=== PATIENT | female | born 1955 | race American Indian/Alaskan Native ===

== ENCOUNTER 2017-01-11 16:36 | Outpatient (CLI) | payer OTHER ==
[2017-01-11 17:33] LABS: Blood Urea Nitrogen 10 mg/dL (7-17)
--- NOTE | 2017-01-11 19:50 | Cat Scan Report ---
FINAL REPORT EXAM: CT ANGIO CHEST HISTORY: AORTIC DISSECTION TECHNIQUE: High-resolution helical axial images were obtained of the chest during intravenous administration of iodinated contrast. Images are reconstructed in the sagittal and coronal planes. PRIORS: None. FINDINGS: There is no evidence of pulmonary embolism, the pulmonary arteries opacify normally. There is coronary artery atherosclerotic calcification and the heart is mildly enlarged. There is no evidence of aortic dissection or aneurysm. There is mild biapical subpleural cyst formation. Otherwise, the lungs are clear. The bones are unremarkable. IMPRESSION: 1. No evidence of aortic dissection or aortic aneurysm 2. No acute findings in the chest 3. Coronary artery atherosclerotic calcification
--- NOTE | 2017-01-11 19:59 | Cat Scan Report ---
FINAL REPORT EXAM: CT ANGIO ABDOMEN PELVIS HISTORY: AORTIC DISSECTION TECHNIQUE: Helical CT scan through the abdomen and pelvis during intravenous injection of iodinated contrast. Images are reconstructed in the sagittal and coronal planes. Oral contrast was not given. PRIORS: 01/11/2017 FINDINGS: The lung bases are clear. There is atherosclerotic calcification of the abdominal aorta without aneurysm or dissection. There is atherosclerotic calcification of the origin of the celiac artery and SMA without significant stenosis. There are single renal arteries bilaterally that appear patent. The liver, gallbladder, pancreas, spleen and adrenal glands appear normal. There is focal parenchymal scar in the upper pole the right kidney. The left kidney has 3.2 cm cyst. There is a 4 cm calcified fibroid in the left side of the uterus. The ovaries appear grossly normal. The stomach appears grossly within normal limits. There are no abnormally dilated loops of bowel or acute inflammatory changes. There is extensive sigmoid diverticulosis with associated hypertrophic thickening of the wall of the sigmoid without evidence of acute diverticulitis. There are numerous left colonic diverticula as well. Should there is no significant interval change. A normal-appearing appendix is identified. The abdominal aorta has a normal diameter. There is advanced degenerative facet disease at L4-5 and L5-S1. Otherwise, the bones and subcutaneous soft tissues are unremarkable for age. IMPRESSION: 1. No evidence of aortic dissection or aneurysm. Diffuse atherosclerotic disease. 2. 3.2 cm cyst in the left kidney. Focal right renal parenchymal scar 3. 4 cm calcified fibroid in the uterus 4. Left colonic and sigmoid diverticulosis without evidence of acute diverticulitis 5. Advanced degenerative facet disease at L4-5 and L5-S1
== END 2017-01-11 16:37 | disposition home or self-care (01) ==
LOC: CT 16:36
PROVIDERS: ATTEND Internal Medicine Cardiovascular Disease
DX: I51.7 Cardiomegaly (principal); I25.10 Atherosclerotic heart disease of native coronary artery without angina pectoris; I70.0 Atherosclerosis of aorta; J94.8 Other specified pleural conditions; N28.1 Cyst of kidney, acquired; N28.89 Other specified disorders of kidney and ureter; D25.9 Leiomyoma of uterus, unspecified; K57.30 Diverticulosis of large intestine without perforation or abscess without bleeding; M51.37 Other intervertebral disc degeneration, lumbosacral region
CPT/HCPCS: 36415; 71275; 74174; 82565; 84520; Q9967